=== PATIENT | male | born 1955 | race Hispanic/Latino ===

== ENCOUNTER 2017-05-27 08:40 | Outpatient (RCR) | payer OTHER ==
[~2017-05-27 08:40] MED LIST: Z.0.GLIPIZIDE5 MG MT; Z.2.METFORMIN HCL500 MT
== END 2017-06-08 ==
LOC: PT 08:40
PROVIDERS: ATTEND Specialist
DX: S46.091A Other injury of muscle(s) and tendon(s) of the rotator cuff of right shoulder, initial encounter (principal); M25.511 Pain in right shoulder; M62.81 Muscle weakness (generalized)

== ENCOUNTER 2017-07-01 07:59 | Outpatient (RCR) | payer OTHER ==
[2018-01-03] MEDS ORDERED: METFORMIN HCL850 MG PO (11:31)
[2018-01-03] MEDS ORDERED: GLIPIZIDE10 MG PO (11:32)
[2018-01-03] MEDS ORDERED: DEXILANT60 MG PO (11:33)
[2018-01-03] MEDS ORDERED: ULTRAM 50MG50 MG PO (11:33)
== END 2017-07-09 ==
LOC: PT 07:59
PROVIDERS: ATTEND Specialist
DX: S46.091A Other injury of muscle(s) and tendon(s) of the rotator cuff of right shoulder, initial encounter (principal)

== ENCOUNTER 2017-07-06 15:02 | Emergency (ER) | payer OTHER ==
[~2017-07-06] VITALS: Ht 172.7 cm; Wt 77.6 kg
--- OUTSIDE RECORDS SUMMARY | 2017-07-06 15:05 | XMS REPORT | Continuity of Care Document ---
Author Author [facility] Organization [facility] Address [address] [place] [address] Phone Unavailable Care Team Providers Care Court Stenographer Name Role Phone JACKINICKIE PCP Insurance Providers Guarantor Kim Becerril Address [address] [place] [address] Email [email or web address] Payer [employer] Policy Number [id number] Subscriber's Name Kim Becerril Relationship 18 Self / Same As Patient Group Number [id number] Group Name [id number] Effective Date 97 Advance Directives Directive Response Recorded Date/Time Does the patient have an advance directive? Yes 05/27/17 8:39am If yes, is advance directive on file with [facility]? No 07/28/10 11:58am If not on file with [facility] will patient provide a copy? No 07/28/10 11:58am Do you have a Directive to Physician? Yes 05/27/17 8:39am Do you have a Medical Power of Residential Solar Consultant? Yes 05/27/17 8:40am Do you have an out of hospital Do Not Resuscitate Order? No 05/18/17 3:39pm Do you have any special needs we should be aware of? No 05/18/17 3:39pm Do you have a support person here with you today? No 05/18/17 3:39pm Did patient receive Notice of Privacy Practices? Yes 05/18/17 3:39pm Did patient receive patient rights and responsibilities? Yes 05/18/17 3:39pm Problems No problem information available. Medications Current Home Medications Medication Dose Units Route Directions Days Qty Instructions Start Date Glipizide 5 Mg Tablet 1 Mouth/Throat Daily Metformin Hcl 500 Mg Tablet 1 Mouth/Throat Daily Social History Social History Problem Response Recorded Date/Time Onset Date Status Hx Psychiatric Problems No 01/03/2011 1:00pm Not Applicable Not Applicable Hospital Discharge Instructions No hospital discharge instruction information available. Plan of Care Prescriptions See Medication Section Functional Status No functional status information available. Allergies, Adverse Reactions, Alerts No known allergies. Immunizations No immunization information available. Vital Signs No vital sign information available. Results No relevant diagnostic test, laboratory data and/or discharge summary information available. Procedures Procedure Status Date Provider(s) US abdomen limited Active 08/13/16 NICKIE ECHEVERRIA DO Encounters Encounter Location Arrival/Admit Date Discharge/Depart Date Attending Provider Discharged [facility] 05/27/17 8:40am 06/08/17 11:59pm TONIE CUI MD Registered Clinic [facility] 08/13/16 10:52am NICKIE ECHEVERRIA DO
[2017-07-06] MEDS ORDERED: ONDANSETRON HCL INJ 2 MG/ML VIAL IV STA (15:35)
[2017-07-06] MEDS ORDERED: SODIUM CHLORIDE 0.9% 1000ML 1,000 ML IV STA (15:35)
[2017-07-06] MEDS ORDERED: MORPHINE SULFATE 4 MG/ML SYR IV STA (15:35)
[2017-07-06 16:16] LABS: BASOPHILS # (AUTO) 0.1 (0.0-0.1); BASOPHILS % 0.6 % (0.0-1.0); EOSINOPHILS # (AUTO) 0.3 (0.0-0.4); EOSINOPHILS % 3.9 % (0.0-6.0); HEMATOCRIT 39.6 % (38.2-49.6); HEMOGLOBIN 14.1 g/dL (14.0-18.0); LYMPHOCYTES # (AUTO) 1.9 (1.0-3.2); LYMPHOCYTES % 21.7 % (18.0-39.1); MEAN CORPUSCULAR HEMOGLOBIN 30.5 pg (28-32); MEAN CORPUSCULAR HGB CONC 35.6 g/dL (31-35); MEAN CORPUSCULAR VOLUME 85.7 fL (81-99); MONOCYTES # (AUTO) 0.7 (0.2-0.8); MONOCYTES % 7.5 % (4.4-11.3); NEUTROPHILS # (AUTO) 5.7 (2.1-6.9); PLATELET COUNT 277 x10e3/uL (140-360); RED BLOOD COUNT 4.62 x10e6/uL (4.3-5.7); RED CELL DISTRIBUTION WIDTH 13.2 % (11.7-14.4)
[2017-07-06 16:17] LABS: BILIRUBIN,URINE NEGATIVE (NEGATIVE); KETONES,URINE NEGATIVE (NEGATIVE); LEUKOCYTE ESTERASE ,URINE NEGATIVE (NEGATIVE); NITRITE,URINE NEGATIVE (NEGATIVE); PROTEIN,URINE DIPSTICK NEGATIVE (NEGATIVE); URINE UROBILINOGEN 0.2 mg/dL (0.2 - 1)
[2017-07-06 16:21] LABS: CLARITY,URINE CLEAR (CLEAR); COLOR,URINE STRAW (YELLOW)
[2017-07-06 16:23] LABS: INR 1.06
[2017-07-06 16:24] LABS: PARTIAL THROMBOPLASTIN TIME 27.6 seconds (23.8-35.5)
[2017-07-06 16:32] LABS: EPITHELIAL CELLS,URINE RARE /LPF
[2017-07-06 16:33] LABS: WBC,URINE (MAN) 0-5 /HPF (0-5)
[2017-07-06 16:34] LABS: ALANINE AMINOTRANSFERASE 16 IU/L (0-55); ALBUMIN 3.7 g/dL (3.5-5.0); ALBUMIN/GLOBULIN RATIO 1.1 (0.8-2.0); ALKALINE PHOSPHATASE 82 IU/L (40-150); AMYLASE 73 U/L (25-125); ANION GAP 12.1 mmol/L (8-16); BLOOD UREA NITROGEN 16 mg/dL (7-26); BUN/CREATININE RATIO 15 (6-25); CALCIUM 9.1 mg/dL (8.4-10.2); CARBON DIOXIDE 27 mmol/L (22-29); CHLORIDE 103 mmol/L (98-107); CREATINE KINASE 111 IU/L (30-200); CREATININE, SERUM 1.07 mg/dL (0.72-1.25); EST GLOMERULAR FILTRATION RATE > 60 ML/MIN (60-); GLUCOSE 267 mg/dL (74-118); LIPASE 49 U/L (8-78); POTASSIUM 4.1 mmol/L (3.5-5.1); SODIUM 138 mmol/L (136-145)
--- NOTE | 2017-07-06 16:50 | Diagnostic Imaging Report ---
PROCEDURE:US GALLBLADDER COMPARISON:Patients [facility], CT, CT ABDOMEN/PELVIS W, 08/05/2016, 9:19. INDICATIONS:Abd Pain, elevated pancreas enzymes TECHNIQUE: Martínez-scale and color doppler transverse and longitudinal images of the right upper quadrant of the abdomen were obtained. FINDINGS: Liver: 14.7 cm in right mid-clavicular line. Increased echogenicity. No masses. Main portal vein: 1.0 cm. Hepatopetal flow. Gallbladder: Present and contracted. No gallstones, sludge, gallbladder wall thickening or pericholecystic fluid. Sonographic Arreola's sign is negative. Common Bile Duct: 0.3 cm. Sonographic Arreola's sign: Negative Right kidney: 10.6 cm. Normal echogenicity. No solid masses or hydronephrosis. Pancreas: The visualized portions are poorly visualized due to bowel gas. Inferior vena cava: Patent Aorta: Poorly visualized due to bowel gas. Ascites: None in the right upper quadrant of the abdomen. CONCLUSION: Increased hepatic echotexture suggestive of steatosis. Contracted gallbladder. Normal biliary tree. Poor visualization of the pancreas and aorta due to bowel gas. Dictated by: Milly Hidalgo M.D. on 07/06/2017 at 16:50 Electronically approved by: Milly Hidalgo M.D. on 07/06/2017 at 16:50
--- NOTE | 2017-07-06 16:53 | Diagnostic Imaging Report ---
PROCEDURE:X-RAY CHEST, ONE VIEW COMPARISON:None. INDICATIONS:CALCULUS OF KIDNEY FINDINGS: The heart is normal in size. The aorta is mildly ectatic. No hilar lymphadenopathy. The lungs are well-inflated. There is no evidence of mass or infiltrate. A few wispy density subsegmental atelectasis or in the right midlung field. Pleura: There is blunting of the right lateral costophrenic angle. Left costophrenic angle is sharp. No pneumothorax. Bones: No focal osseous lesions. Soft tissues: A staple overlies the lower cervical spine to the right of midline and may be outside the patient. CONCLUSION: Blunting of the right lateral costophrenic angle could be due to small pleural effusion or pleural thickening. Dictated by: Milly Hidalgo M.D. on 07/06/2017 at 16:53 Electronically approved by: Milly Hidalgo M.D. on 07/06/2017 at 16:53
[2017-07-06] MEDS ORDERED: MORPHINE SULFATE 2 MG/ML SYR IV NR (17:30)
[2017-07-06] MEDS ORDERED: SODIUM CHLORIDE 0.9% 1000ML 1,000 ML IV ONE (17:30)
--- NOTE | 2017-07-06 17:33 | Diagnostic Imaging Report ---
PROCEDURE:CT ABDOMEN AND PELVIS WITH CONTRAST COMPARISON:[facility], CT, CT ABDOMEN/PELVIS W, 08/05/2016, 9:19. INDICATIONS:RUQ pain TECHNIQUE: Multidetector CT scanning of the abdomen and pelvis was performed after the administration of 100 cc of nonionic contrast. Coronal and sagittal reformations were obtained. Routine protocol performed. DLP: 357.17 mGy-cm FINDINGS: Lung bases: Right pleural effusion measures 7 mm in layers posterior. This has increased since the previous exam. Portions of the effusion tracks laterally. There is subsegmental atelectasis in the middle lobe, posterior right lower lobe and inferior lingula. Left lung base is clear. Visualized portion of the mediastinum there is trace coronary artery calcifications. No pericardial effusion. The distal esophagus is collapsed. Liver: Diffusely decreased in attenuation without mass. Gallbladder: Present and is contracted. No biliary ductal dilatation. Spleen: Normal size and attenuation without mass. Pancreas: Normal enhancement. No mass or ductal dilatation. No peripancreatic inflammation. Adrenal Glands: No mass. Kidneys: Symmetric enhancement. No hydronephrosis. No mass or calculus. Gastrointestinal: Stomach is normal. Small bowel is normal in diameter with normal wall thickness. Large bowel is normal in diameter with normal wall thickness. The appendix is not visible and may be absent or collapsed. Vasculature: Aorta and IVC are normal in diameter. Scattered calcifications present throughout the aorta and iliac arteries. Peritoneum/Retroperitoneum: No free fluid or fluid collection. No lymphadenopathy. Bladder: Well-distended. Persistent thickening of the bladder dome is similar to previous exam. No intraluminal mass or calculus. No ureteral dilatation. Reproductive organs: Unremarkable. Musculoskeletal: A fat containing right inguinal hernia stable. A small fat-containing umbilical hernia is stable. Mild degenerative changes of the spine are present without lytic or blastic lesion. Degenerative changes of the pubic symphysis are stable. CONCLUSION: 1. Small right pleural effusion may be chronic and partially loculated. 2. No bowel obstruction or inflammation. Nonvisualization of the appendix, if present. 2. Stable thickening of the bladder dome. No CT evidence of cystitis or neoplasm. No hydroureteronephrosis. 3. Hepatic steatosis. Dictated by: Milly Hidalgo M.D. on 07/06/2017 at 17:33 Electronically approved by: Milly Hidalgo M.D. on 07/06/2017 at 17:33
[2017-07-06] MEDS ORDERED: IOPAMIDOL 370 MG/ML 200 ML INFUS..BTL INJ ONE (20:13)
[2017-07-06] MEDS ORDERED: SODIUM CHLORIDE 0.9% 50ML 50 ML ONE (20:13)
== END 2017-07-06 18:37 | disposition home or self-care (01) ==
LOC: ER 15:02
DX: R10.11 Right upper quadrant pain (principal); E11.9 Type 2 diabetes mellitus without complications
CPT/HCPCS: 36415; 71045; 74177; 76705; 80053; 81001; 82150; 82550; 82553; 83690; 84484; 85025; 85610; 85730; 93005; 99284; J2270; J2405; J7030; Q9967

== ENCOUNTER 2017-07-15 09:04 | Outpatient (RCR) | payer OTHER | END 2017-08-08 | LOC: PT 09:04 | PROVIDERS: ATTEND Specialist | DX: S46.091A Other injury of muscle(s) and tendon(s) of the rotator cuff of right shoulder, initial encounter (principal); M25.511 Pain in right shoulder; M62.81 Muscle weakness (generalized) ==

== ENCOUNTER 2018-01-05 06:58 | Observation (INO) | payer OTHER ==
[2018-01-03 12:03] LABS: BASOPHILS % 0.3 % (0.0-1.0); EOSINOPHILS # (AUTO) 0.3 (0.0-0.4); EOSINOPHILS % 2.9 % (0.0-6.0); HEMATOCRIT 37.6 % (38.2-49.6); HEMOGLOBIN 13.7 g/dL (14.0-18.0); LYMPHOCYTES # (AUTO) 1.3 (1.0-3.2); LYMPHOCYTES % 13.3 % (18.0-39.1); MEAN CORPUSCULAR HEMOGLOBIN 31.1 pg (28-32); MEAN CORPUSCULAR HGB CONC 36.4 g/dL (31-35); MEAN CORPUSCULAR VOLUME 85.5 fL (81-99); MONOCYTES # (AUTO) 0.6 (0.2-0.8); MONOCYTES % 5.8 % (4.4-11.3); NEUTROPHILS # (AUTO) 7.7 (2.1-6.9); NEUTROPHILS % 77.4 % (38.7-80.0); PLATELET COUNT 242 x10e3/uL (140-360); RED CELL DISTRIBUTION WIDTH 12.5 % (11.7-14.4)
[2018-01-03 12:18] LABS: INR 0.9; PARTIAL THROMBOPLASTIN TIME 27.5 seconds (23.8-35.5)
[2018-01-03 12:22] LABS: BLOOD UREA NITROGEN 12 mg/dL (7-26); BUN/CREATININE RATIO 14 (6-25); CALCIUM 9.6 mg/dL (8.4-10.2); CARBON DIOXIDE 25 mmol/L (22-29); CHLORIDE 102 mmol/L (98-107); CREATININE, SERUM 0.85 mg/dL (0.72-1.25); EST GLOMERULAR FILTRATION RATE > 60 ML/MIN (60-); GLUCOSE 143 mg/dL (74-118); SODIUM 138 mmol/L (136-145)
--- NOTE | 2018-01-03 12:23 | Diagnostic Imaging Report ---
EXAMINATION: PA and lateral views of the chest. COMPARISON: None CLINICAL HISTORY: Preoperative evaluation for back surgery DISCUSSION: Lines/tubes: None. Lungs: The lungs are well inflated. Linear scarring. No pneumonia or pulmonary edema. Pleura: No pleural effusion or pneumothorax. Heart and mediastinum: The cardiomediastinal silhouette is normal. Bones and soft tissues: No acute bony abnormalities. IMPRESSION: No acute cardiopulmonary abnormalities. Signed by: Dr. Tucker Hay M.D. on 01/03/2018 12:20 PM
[~2018-01-05] VITALS: Ht 175.3 cm; Wt 71.7 kg
[~2018-01-05 06:58] MED LIST changes: +DEXILANT60 MG PO; +GLIPIZIDE10 MG PO; +METFORMIN HCL850 MG PO; +ULTRAM 50MG50 MG PO
[2018-01-05] MEDS ORDERED: ACETAMINOPHEN 1000 MG/100 ML 100 ML IV ONE (07:23)
[2018-01-05] MEDS ORDERED: LIDOCAINE HCL (LTA) 4 ML SOLN ONE (07:23)
[2018-01-05] MEDS ORDERED: BACITRACIN 50,000 UNIT VIAL ONE (07:35)
[2018-01-05] MEDS ORDERED: THROMBIN FOR SOLN 5,000 UNIT VIAL ONE (07:35)
[2018-01-05] MEDS ORDERED: BUPIVACAINE 0.5%/EPI 30 ML SDV INJ ONE (07:35)
[2018-01-05] MEDS ORDERED: CEFAZOLIN SOD 1 GM VIAL ONE (07:47)
[2018-01-05] MEDS ORDERED: GELATIN SPONGE 12-7MM ONE (07:56)
[2018-01-05] MEDS ORDERED: MORPHINE SULFATE 5 MG/ML VIAL IM PRN (10:15)
[2018-01-05] MEDS ORDERED: PROMETHAZINE HCL (IM) 25 MG/ML VIAL IM PRN (10:15)
[2018-01-05] MEDS ORDERED: ACETAMINOPHEN 325 MG TAB PO PRN (10:15)
[2018-01-05] MEDS: LACTATED RINGER'S 1,000 ML IV SCH ×2 (10:15→18:35)
[2018-01-05] MEDS ORDERED: ONDANSETRON HCL INJ 2 MG/ML VIAL IV PRN (10:15)
[2018-01-05] MEDS ORDERED: HYDROMORPHONE 2MG/ML 2 MG/ML ML IV PRN (10:15)
[2018-01-05] MEDS ORDERED: MAGNESIUM/ALUMINUM/SIMETHICONE 30 ML UDC PO PRN (10:15)
[2018-01-05] MEDS ORDERED: TRAMADOL HCL 50 MG TAB PO PRN (10:15)
[2018-01-05] MEDS ORDERED: FENTANYL CITRATE/PF 100MCG/2 ML INJ ONE ×2 (10:15→17:30)
[2018-01-05] MEDS ORDERED: CEPACOL SORE THROAT LOZENGES PO PRN (10:15)
--- NOTE | 2018-01-05 10:58 | Operative Report ---
DATE OF PROCEDURE: January 05, 2018 PREOPERATIVE DIAGNOSIS: Right L4-L5 disk herniation with radiculopathy, M51.16. POSTOPERATIVE DIAGNOSIS: Right L4-L5 disk herniation with radiculopathy, M51.16. PROCEDURE: Right L4-L5 laminotomy and microsurgical resection of extruded and sequestered disk, [id number]. ANESTHESIA: General. INDICATIONS: The patient is a 62-year-old man who presents with a right L4-L5 disk herniation with inferior migration of the extruded disk fragment into the L5 lateral recess. He was taken to the operating room for microsurgical diskectomy. PROCEDURE: After the induction of general anesthesia, the patient was placed on the operating table in the prone position over a Juan frame. The lumbar region was prepped and draped in a sterile fashion. A preoperative x-ray was obtained. A small midline incision was created. Lumbar fascia was opened to the right of midline, and subperiosteal dissection was carried out to expose the right side of the L4 and L5 laminae and the medial aspect of the facet joint. A 2nd x-ray confirmed correct localization. The operating microscope was brought in. A high-speed drill equipped with a elfego bur was used to drill the inferior aspect of the lamina of L4 and the superior aspect of the lamina of L5, and the medial rim of the L4-L5 facet joint on the left side. The hypertrophic ligamentum flavum was resected. The dural sac and the L5 traversing nerve root were exposed. The nerve root was retracted medially. The epidural veins were bipolar coagulated and divided with microscissors. The extruded disk material came into view below the disk space and the L5 lateral recess, markedly compressing that nerve root. This was mobilized with a microball probe and grasped with a micropituitary rongeur and removed as a large fragment of disk. Excellent decompression of the nerve root was immediately achieved. Several smaller fragments were retrieved from the L5 lateral recess until the nerve root was fully decompressed. The disk annulus was then examined and found to be quite intact without any significant opening. Therefore, the disk was not further invaded. The wound was copiously irrigated with Bacitracin solution. Meticulous hemostasis was secured. The retractor was removed. The lumbar fascia was closed with 0 Vicryl suture. Subcutaneous layer was closed with 2-0 Vicryl sutures. The skin was closed with 3-0 Monocryl sutures in a subcuticular fashion. Steri-Strips and dressing were applied. The patient was awakened, extubated and taken to the postanesthesia care unit in stable condition. No intraoperative complications were encountered. Estimated blood loss was less than 10 mL. Job#: [id number] RI
[2018-01-05 11:03] VITALS: BP 164/78
[2018-01-05 11:40] VITALS: BP 164/78
[2018-01-05] MEDS: CARISOPRODOL 350 MG TAB PO PRN ×2 (11:52→22:48)
[2018-01-05] MEDS: OXYCODONE/ACETAMINOPHEN 5-325 1 EACH TABLET PO PRN ×3 (11:52→22:48)
[2018-01-05] MEDS ORDERED: LISINOPRIL2.5 MG PO (12:07)
[2018-01-05 13:59] VITALS: BP 164/78
[2018-01-05] MEDS ORDERED: CEFAZOLIN SOD 1 GM/D5W 50ML 50 ML IV SCH (14:00)
[2018-01-05 16:00] VITALS: BP 137/69
[2018-01-05] MEDS: CEFAZOLIN SOD 1 GM VIAL IV SCH ×2 (16:46→23:59)
[2018-01-05] MEDS: METFORMIN HCL 850 MG TAB PO SCH (16:47)
[2018-01-05] MEDS: GLIPIZIDE 5 MG TAB PO SCH (16:47)
[2018-01-05] MEDS ORDERED: NON-FORMULARY MEDICATION (Glipizide 10 MG) PO SCH (17:00)
[2018-01-05] MEDS ORDERED: NEOSTIGMINE 5 MG/5ML SYR ONE (17:06)
[2018-01-05] MEDS ORDERED: ROCURONIUM BROMIDE 10 MG/ML 5ML VIAL ONE (17:06)
[2018-01-05] MEDS ORDERED: GLYCOPYRROLATE INJ 1MG/ 5 ML SYR ONE (17:06)
[2018-01-05] MEDS ORDERED: PROPOFOL IV EMULSION 10 MG/ML 20 ML VIAL ONE (17:06)
[2018-01-05] MEDS ORDERED: LIDOCAINE HCL 2% LOCAL INJ 5 ML SDV VIAL INJ ONE (17:06)
[2018-01-05] MEDS ORDERED: SEVOFLURANE INHAL SOLN 250 ML PEN BTL ONE (17:06)
[2018-01-05] MEDS ORDERED: ONDANSETRON HCL INJ 2 MG/ML VIAL ONE (17:06)
[2018-01-05] MEDS ORDERED: DEXAMETHASONE SOD PHOS INJ 4 MG/ML VIAL ONE (17:06)
[2018-01-05] MEDS ORDERED: MIDAZOLAM HCL 2 MG/2 ML VIAL ONE (17:30)
[2018-01-05 19:46] VITALS: BP 140/84
[2018-01-05] MEDS ORDERED: ZOLPIDEM TARTRATE 5 MG TAB PO PRN (21:00)
[2018-01-06] VITALS: BP 107/67
[2018-01-06 00:51] VITALS: BP 140/84
[2018-01-06 04:00] VITALS: BP 111/64
[2018-01-06] MEDS: CARISOPRODOL 350 MG TAB PO PRN (06:22)
[2018-01-06] MEDS: OXYCODONE/ACETAMINOPHEN 5-325 1 EACH TABLET PO PRN (06:22)
[2018-01-06] MEDS ORDERED: PANTOPRAZOLE SOD 40 MG TABEC PO SCH (07:30)
[2018-01-06] MEDS: METFORMIN HCL 850 MG TAB PO SCH (08:25)
[2018-01-06] MEDS: CEFAZOLIN SOD 1 GM VIAL IV SCH (08:25)
[2018-01-06] MEDS: GLIPIZIDE 5 MG TAB PO SCH (08:25)
[2018-01-06 08:31] VITALS: BP 130/70
[2018-01-06 10:25] VITALS: BP 130/70
== END 2018-01-06 10:14 | disposition home or self-care (01) ==
LOC: OR 06:58 → PACU V 10:17 → IMCU 11:03
PROVIDERS: ADMIT Neurological Surgery; ATTEND Neurological Surgery
DX: M51.16 Intervertebral disc disorders with radiculopathy, lumbar region (principal); E11.9 Type 2 diabetes mellitus without complications; K27.9 Peptic ulcer, site unspecified, unspecified as acute or chronic, without hemorrhage or perforation; Z01.810 Encounter for preprocedural cardiovascular examination; Z01.812 Encounter for preprocedural laboratory examination; Z01.811 Encounter for preprocedural respiratory examination
CPT/HCPCS: 36415 ×2; 63047; 69990; 71046; 72020; 80048; 82948; 85025; 85610; 85730; 86850; 86900; 88304; 93005; G0378 ×2; J0690 ×2; J1100; J2001; J2250; J2405; J3490; J7120; S0164 ×2

== ENCOUNTER 2018-02-07 14:00 | Outpatient (RCR) | payer OTHER ==
[~2018-02-07 14:00] MED LIST changes: +LISINOPRIL2.5 MG PO
== END 2018-02-08 ==
LOC: PT 14:00
PROVIDERS: ATTEND Neurological Surgery
DX: M51.16 Intervertebral disc disorders with radiculopathy, lumbar region (principal); M54.5 Low back pain; M53.86 Other specified dorsopathies, lumbar region; R26.2 Difficulty in walking, not elsewhere classified; M62.81 Muscle weakness (generalized)

== ENCOUNTER 2018-03-01 09:00 | Outpatient (RCR) | payer OTHER | END 2018-03-10 | LOC: PT 09:00 | PROVIDERS: ATTEND Neurological Surgery | DX: M51.16 Intervertebral disc disorders with radiculopathy, lumbar region (principal); M53.86 Other specified dorsopathies, lumbar region; M54.5 Low back pain; M62.81 Muscle weakness (generalized); R26.2 Difficulty in walking, not elsewhere classified | CPT/HCPCS: 97139 ==